=== PATIENT | male | born 1960 | race Caucasian/White ===

== ENCOUNTER 2017-12-26 21:34 | Inpatient (IN) | payer OTHER ==
[~2017-12-26] VITALS: Ht 170.2 cm; Wt 108.0 kg
[2017-12-26] MEDS ORDERED: SODIUM CHLORIDE 0.9% 1000ML 1,000 ML IV STA ×2 (22:14→23:16)
[2017-12-26] MEDS ORDERED: VANCOMYCIN 1GM/NS 250 ML 250 ML IV STA (22:14)
[2017-12-26] MEDS ORDERED: CEFEPIME HCL 2 GM VIAL IV STA (22:14)
[2017-12-26] MEDS ORDERED: ONDANSETRON HCL INJ 2 MG/ML VIAL IV STA (22:14)
[2017-12-26] MEDS ORDERED: VANCOMYCIN 1GM/NS 250 ML 250 ML ONE (22:24)
[2017-12-26] MEDS ORDERED: CEFEPIME HCL 2 GM VIAL ONE (22:25)
[2017-12-26] MEDS ORDERED: SODIUM CHLORIDE 0.9% 1000ML 2,000 ML ONE (22:25)
[2017-12-26 22:32] LABS: BASOPHILS # (AUTO) 0.1 (0.0-0.1); BASOPHILS % 0.2 % (0.0-1.0); HEMATOCRIT 41.4 % (38.2-49.6); HEMOGLOBIN 13.7 g/dL (14.0-18.0); LYMPHOCYTES # (AUTO) 0.9 (1.0-3.2); LYMPHOCYTES % 3.2 % (18.0-39.1); MEAN CORPUSCULAR HEMOGLOBIN 30.2 pg (28-32); MEAN CORPUSCULAR HGB CONC 33.1 g/dL (31-35); MEAN CORPUSCULAR VOLUME 91.2 fL (81-99); MONOCYTES # (AUTO) 2.6 (0.2-0.8); MONOCYTES % 9.1 % (4.4-11.3); NEUTROPHILS # (AUTO) 25.1 (2.1-6.9); NEUTROPHILS % 86.3 % (38.7-80.0); PLATELET COUNT 153 x10e3/uL (140-360); RED BLOOD COUNT 4.54 x10e6/uL (4.3-5.7); RED CELL DISTRIBUTION WIDTH 13.1 % (11.7-14.4)
[2017-12-26] MEDS ORDERED: ACETAMINOPHEN 1000 MG/100 ML IV STA (22:42)
[2017-12-26 22:45] LABS: INR 1.3; PROTHROMBIN TIME 15.2 seconds (11.9-14.5)
[2017-12-26 22:46] LABS: PARTIAL THROMBOPLASTIN TIME 30.7 seconds (23.8-35.5)
[2017-12-26 22:59] LABS: ALBUMIN 2.7 g/dL (3.5-5.0); ALBUMIN/GLOBULIN RATIO 0.6 (0.8-2.0); ANION GAP 16.6 mmol/L (8-16); CREATININE, SERUM 2.46 mg/dL (0.72-1.25); MAGNESIUM 1.5 MG/DL (1.3-2.1); POTASSIUM 3.6 mmol/L (3.5-5.1)
[2017-12-26 23:07] LABS: CREATINE KINASE MB 0.8 ng/mL (0.00-5.00)
[2017-12-26 23:10] LABS: KETONES,URINE TRACE (NEGATIVE); LEUKOCYTE ESTERASE ,URINE 2+ (NEGATIVE); NITRITE,URINE NEGATIVE (NEGATIVE); URINE UROBILINOGEN 8 mg/dL (0.2 - 1)
[2017-12-26 23:12] LABS: BILIRUBIN,URINE 1+ (NEGATIVE); CLARITY,URINE CLOUDY (CLEAR); COLOR,URINE AMBER (YELLOW); PROTEIN,URINE DIPSTICK 2+ (NEGATIVE)
[2017-12-26 23:17] LABS: BACTERIA,URINE MODERATE /HPF; EPITHELIAL CELLS,URINE FEW /LPF; RBC,URINE >50 /HPF (0-5); WBC,URINE (MAN) >50 /HPF (0-5)
[2017-12-26 23:36] LABS: ABG PCO2 34 mmHg (41-51); ABG PH 7.36 (7.31-7.41)
[2017-12-26 23:37] LABS: ABG HCO3 19 mmol/L (23-28); ABG PO2 53 mmHg (80-105)
[2017-12-27] VITALS (37 sets, daily range): BP systolic 106–168; BP diastolic 79–101
--- NOTE | 2017-12-27 00:07 | Diagnostic Imaging Report ---
History:Right hand weakness Comparison studies:None Technique: Axial images were obtained from the skull base to the vertex. Coronal and sagittal images reconstructed from the axial data. Intravenous contrast: None Findings: Scalp/skull: No abnormalities. Extra-axial spaces: No masses. No fluid collections. Brain sulci: Appropriate for age Ventricles: Normal in size and configuration. No hydrocephalus. Parenchyma: Subtle hypodensities in the supratentorial white matter are small vessel ischemic changes. No masses, hemorrhage, acute or chronic cortical vascular insults. Sellar/suprasellar region: No abnormalities. Craniocervical junction: Patent foramen magnum. No Chiari one malformation. Incidental findings: Atherosclerotic calcifications in the carotid siphons . Impression: No acute abnormalities. Minimal supratentorial white matter small vessel ischemic changes. Signed by: Dr. Franklyn Duque M.D. on 12/27/2017 12:03 AM
--- NOTE | 2017-12-27 00:46 | Diagnostic Imaging Report ---
EXAM: CT ABDOMEN/PELVIS WO DATE: 12/26/2017 10:14 PM INDICATION: Sepsis, obstructive uropathy COMPARISON: None TECHNIQUE: The abdomen and pelvis were scanned using a multidetector helical scanner. Coronal and sagittal reformations were obtained. Routine protocol performed. IV Contrast: None FINDINGS: Lack of IV contrast decreases sensitivity in evaluating abdominal and pelvic organs. LOWER THORAX: Mild right greater than left bibasilar groundglass, which could reflect atelectasis. Developing infection not entirely excluded in the right lower lobe. LIVER/BILIARY: Hepatic steatosis. No ductal dilatation. GALLBLADDER: Unremarkable SPLEEN: Unremarkable PANCREAS: Unremarkable ADRENALS: No nodules KIDNEYS: Moderate bilateral perinephric and left periureteral stranding. Nonobstructing 3 mm left upper pole calculus and 6 mm and 3 mm lower pole calculi. 5 the 6 mm mid left ureteral calculus above the pelvic brim with mild hydroureteronephrosis. Gas and high attenuation/complex fluid is seen within the left collecting system. Nonobstructing 3 mm right interpolar calculus. No hydronephrosis. GI TRACT: No evidence of obstruction. Sigmoid wall thickening which may be due to underdistention. Scattered diverticula. VESSELS: Mild atherosclerotic calcifications PERITONEUM/RETROPERITONEUM: No free air or fluid LYMPH NODES: No lymphadenopathy REPRODUCTIVE ORGANS/BLADDER: Bladder is decompressed with a Rios. SOFT TISSUES: Bilateral fat-containing inguinal hernias. BONES: Degenerative changes with L1-2 and lower thoracic posterior disc osteophyte impressing upon the ventral thecal sac. IMPRESSION: 1. 5-6 mm left mid ureteral calculus with mild upstream hydroureteronephrosis. 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 2. Multiple nonobstructing renal calculi. Discussed with Physician: ELKE GARZON MD at 12:40 AM on 12/27/2017 Signed by: Dr Maddison Lizama MD on 12/27/2017 12:42 AM
[2017-12-27] MEDS ORDERED: DEXTROSE 50% SYRINGE 50 ML IV PRN (01:15)
[2017-12-27] MEDS ORDERED: ONDANSETRON HCL INJ 2 MG/ML VIAL IV PRN (01:15)
[2017-12-27] MEDS ORDERED: MORPHINE SULFATE 2 MG/ML SYR IV PRN (01:15)
[2017-12-27] MEDS: CEFEPIME HCL 2 GM VIAL IV SCH ×2 (01:23→13:26)
[2017-12-27] MEDS: SODIUM CHLORIDE 0.9% 1000ML 1,000 ML IV SCH ×2 (01:35→12:31)
--- NOTE | 2017-12-27 01:35 | Diagnostic Imaging Report ---
CHEST SINGLE (PORTABLE), 12/27/2017 12:24 AM Technique: CHEST SINGLE (PORTABLE) Comparison: None available. Clinical history: \S\SEPSIS, LIKELY UTI/OBSTRUCTIVE UROPATHY \[id number] \S\99 Findings: See Impression. Partially imaged ACDF. Impression: 1. Normal cardiomediastinal silhouette for technique. 2. Mild perihilar/bibasilar opacities which may be due to edema. 3. No effusion or pneumothorax. Signed by: Dr Maddison Lizama MD on 12/27/2017 1:32 AM
--- OUTSIDE RECORDS SUMMARY | 2017-12-27 01:36 | XMS REPORT ---
Author [facility] Address Unknown Phone Unavailable Care Team Providers Care Street Openings Inspector Name Role Phone ELKE GARZON Unavailable Unavailable Problems This patient has no known problems. Allergies, Adverse Reactions, Alerts This patient has no known allergies or adverse reactions. Medications This patient has no known medications. Results Test Description Test Time Test Comments Text Results Atomic Results Result Comments CT BRAIN WO [place] [address] Patient Name: SUJATHA GRECO MR #: [id number] : 1960 Age/Sex: 57/M Req # : [id number] Adm Physician: Ordered by: ELKE GARZON MD Report #: [id number] Location: ER Room/Bed: Procedure: [id number] CT/CT BRAIN WO Exam Date: 12/26/17 Exam Time: 2335 REPORT STATUS: Signed History:Right hand weakness Comparison studies: None Technique: Axial images were obtained from the skull base to the vertex. Coronal and sagittal images reconstructed from the axial data. Intravenous contrast: None Findings: Scalp/skull: No abnormalities. Extra-axial spaces: No masses. No fluid collections. Brain sulci: Appropriate for age Ventricles: Normal in size and configuration. No hydrocephalus. Parenchyma: Subtle hypodensities in the supratentorial white matter are small vessel ischemic changes. No masses, hemorrhage, acute or chronic cortical vascular insults. Sellar/ suprasellar region: No abnormalities. Craniocervical junction: Patent foramen magnum. No Chiari one malformation. Incidental findings: Atherosclerotic calcifications in the carotid siphons . Impression: No acute abnormalities. Minimal supratentorial white matter small vessel ischemic changes. Signed by: Dr. Franklyn Duque M.D. on 12/27/2017 12: 03 AM Dictated By: FRANKLYN DUQUE MD, MD 0003 Transcribed By: SAVANA on 0003 COPY TO: ELKE GARZON MD CT ABDOMEN/PELVIS WO [place] [address] Patient Name: SUJATHA GRCEO MR #: [id number] : 1960 Age/Sex: 57/M Req #: [id number] Adm Physician: Ordered by: ELKE GARZON MD Report #: [id number] Location: ER Room/Bed: Procedure: [id number] CT/CT ABDOMEN/PELVIS WO Exam Date: 12/26/17 Exam Time: 5 REPORT STATUS: Signed EXAM: CT ABDOMEN/ PELVIS WO DATE: 12/26/2017 10:14 PM INDICATION: Sepsis, obstructive uropathy COMPARISON: None TECHNIQUE: The abdomen and pelvis were scanned using a multidetector helical scanner. Coronal and sagittal reformations were obtained. Routine protocol performed. IV Contrast: None FINDINGS: Lack of IV contrast decreases sensitivity in evaluating abdominal and pelvic organs. LOWER THORAX: Mild right greater than left bibasilar groundglass, which could reflect atelectasis. Developing infection not entirely excluded in the right lower lobe. LIVER/BILIARY: Hepatic steatosis. No ductal dilatation. GALLBLADDER: Unremarkable SPLEEN: Unremarkable PANCREAS: Unremarkable ADRENALS: No nodules KIDNEYS: Moderate bilateral perinephric and left periureteral stranding. Nonobstructing 3 mm left upper pole calculus and 6 mm and 3 mm lower pole calculi. 5 the 6 mm mid left ureteral calculus above the pelvic brim with mild hydroureteronephrosis. Gas and high attenuation/complex fluid is seen within the left collecting system. Nonobstructing 3 mm right interpolar calculus. No hydronephrosis. GI TRACT: No evidence of obstruction. Sigmoid wall thickening which may be due to underdistention. Scattered diverticula. VESSELS: Mild atherosclerotic calcifications PERITONEUM/RETROPERITONEUM: No free air or fluid LYMPH NODES: No lymphadenopathy REPRODUCTIVE ORGANS/BLADDER: Bladder is decompressed with a Rios. SOFT TISSUES: Bilateral fat- containing inguinal hernias. BONES: Degenerative changes with L1-2 and lower thoracic posterior disc osteophyte impressing upon the ventral thecal sac. IMPRESSION: 1. 5-6 mm left mid ureteral calculus with mild upstream hydroureteronephrosis. 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 2. Multiple nonobstructing renal calculi. Discussed with Physician: ELKE GARZON MD at 12:40 AM on 12/27/2017 Signed by: Dr Tamiko Lizama MD on 12/27/2017 12:42 AM Dictated By: TAMIKO LIZAMA MD Transcribed By: SAVANA on 12/27/1741 COPY TO: ELKE GARZON MD
[2017-12-27] MEDS ORDERED: FENTANYL CITRATE/PF 100MCG/2 ML INJ PRN (01:42)
[2017-12-27] MEDS ORDERED: MIDAZOLAM HCL 2 MG/2 ML VIAL PRN (01:42)
[2017-12-27] MEDS ORDERED: SODIUM CHLORIDE 0.9% 1000ML 2,000 ML PRN (01:43)
[2017-12-27] MEDS ORDERED: IOPAMIDOL 370 MG/ML 200 ML INFUS..BTL INJ PRN (01:43)
[2017-12-27] MEDS ORDERED: LIDOCAINE HCL 2% LOCAL 20 ML VIAL PRN (01:43)
[2017-12-27] MEDS: MORPHINE SULFATE 2 MG/ML SYR IV PRN ×2 (04:55→20:13)
[2017-12-27 05:21] LABS: BASOPHILS # (AUTO) 0.1 (0.0-0.1); BASOPHILS % 0.3 % (0.0-1.0); HEMATOCRIT 39.9 % (38.2-49.6); HEMOGLOBIN 12.9 g/dL (14.0-18.0); LYMPHOCYTES # (AUTO) 1.2 (1.0-3.2); LYMPHOCYTES % 5.2 % (18.0-39.1); MEAN CORPUSCULAR HEMOGLOBIN 29.9 pg (28-32); MEAN CORPUSCULAR HGB CONC 32.3 g/dL (31-35); MEAN CORPUSCULAR VOLUME 92.4 fL (81-99); MONOCYTES % 8.2 % (4.4-11.3); NEUTROPHILS # (AUTO) 20.2 (2.1-6.9); NEUTROPHILS % 85.6 % (38.7-80.0); PLATELET COUNT 131 x10e3/uL (140-360); RED BLOOD COUNT 4.32 x10e6/uL (4.3-5.7); RED CELL DISTRIBUTION WIDTH 13.1 % (11.7-14.4)
[2017-12-27 05:21] LABS: KETONES,URINE NEGATIVE (NEGATIVE); LEUKOCYTE ESTERASE ,URINE 2+ (NEGATIVE); NITRITE,URINE NEGATIVE (NEGATIVE); URINE UROBILINOGEN 0.2 mg/dL (0.2 - 1)
[2017-12-27 05:22] LABS: BILIRUBIN,URINE 1+ (NEGATIVE); CLARITY,URINE TURBID (CLEAR); COLOR,URINE BROWN (YELLOW); PROTEIN,URINE DIPSTICK 2+ (NEGATIVE)
[2017-12-27 05:27] LABS: BACTERIA,URINE MODERATE /HPF; EPITHELIAL CELLS,URINE RARE /LPF; RBC,URINE >50 /HPF (0-5); WBC,URINE (MAN) >50 /HPF (0-5)
[2017-12-27 05:44] LABS: ALBUMIN 2.3 g/dL (3.5-5.0); ALBUMIN/GLOBULIN RATIO 0.5 (0.8-2.0); ANION GAP 14.2 mmol/L (8-16); CALCIUM 7.9 mg/dL (8.4-10.2); CREATININE, SERUM 2.28 mg/dL (0.72-1.25); POTASSIUM 4.2 mmol/L (3.5-5.1)
[2017-12-27 06:52] LABS: CHOL/HDL RATIO 17.6 (3.9-4.7)
[2017-12-27 07:10] LABS: BAND NEUTROPHILS % (MANUAL) 5 %; LYMPHOCYTES % (MANUAL) 5 % (19-48); MONOCYTES % (MANUAL) 5 % (3.4-9.0); NEUTROPHILS % (MANUAL) 85 % (40-74)
[2017-12-27 07:11] LABS: PLATELET ESTIMATE SLIGHTLY DECREASED; PLATELET MORPHOLOGY COMMENT NORMAL; RBC MORPHOLOGY COMMENT NORMAL
--- NOTE | 2017-12-27 07:27 | History and Physical ---
PRIMARY CARE PHYSICIAN: Dr. Jackson CHIEF COMPLAINT: Bloody urine. HISTORY OF PRESENT ILLNESS: This is a 57-year-old man who developed bloody urine about a week ago, had difficulty with some urination. He had fever at home as high as 102, finally decided to come to the hospital due to persistent symptoms. Here, he was found to have acute kidney injury and left-sided ureterolithiasis with hydroureteronephrosis with emphysematous pyelitis. Patient was taken to the lab and left-sided nephrostomy tube was placed. Patient was also found to be septic, admitted to the ICU for further management. Currently has left flank pain. Denies any nausea, vomiting. Overnight, patient's oxygen saturations were falling and required BiPAP support. PAST MEDICAL HISTORY: Remote stroke with residual right-sided weakness; sleep apnea, using CPAP at home; he had a pulmonary embolus in 2012; diabetes mellitus type 2; nephrolithiasis. PAST SURGICAL HISTORY: Cervical fusion, appendectomy, tonsillectomy. ALLERGIES: PER ELECTRONIC MEDICAL RECORD. FAMILY/SOCIAL HISTORY: Patient is single. He drinks occasionally. Denies any cigarettes or illicits. MEDICATIONS: Per electronic medical record. REVIEW OF SYSTEMS: Denies any dizziness, chest pain. PHYSICAL EXAMINATION: VITAL SIGNS: Have been reviewed. Temperature as high as 101.1, pulse as high as 126, blood pressure 77/68. GENERAL APPEARANCE: Tired-appearing man resting in bed with BiPAP mask in place. HEENT: He has BiPAP mask in place. CARDIOVASCULAR: Normal S1 and S2. LUNGS: He has reduced breath sounds throughout. No wheezing. ABDOMEN: Soft, nondistended. He has tenderness on the left side, left flank. He has nephrostomy tube in place with some serosanguineous material draining. EXTREMITIES: No edema or calf tenderness. NEUROLOGICAL: He is alert and oriented x3. He moves all extremities. SKIN: Dry. PSYCHIATRIC: Normal affect. LABS: Reviewed. MEDICATIONS: Reviewed. ASSESSMENT AND PLAN: A 57-year-old man. 1. Severe sepsis with acute kidney injury. Will continue antibiotics. Follow up cultures. Patient is on intravenous cefepime. He is also on intravenous fluids. Will also obtain blood cultures. 2. Acute kidney injury. Secondary to ureterolithiasis. Will continue intravenous fluids and follow up. 3. Left ureterolithiasis with 5 to 6 mm left mid ureteral calculus with associated hydroureteronephrosis and emphysematous pyelitis/pyelonephritis. He is status post left-sided nephrostomy tube. 4. Multiple nonobstructive renal calculi. 5. Obstructive sleep apnea, now with respiratory distress. He is on bilevel positive airway pressure. We will follow closely. His arterial blood gases done in the emergency room showed 7.36/34/53. He is hypoxemic. Will continue bilevel positive airway pressure support at this time and reassess. 6. Hyponatremia. This is improving. Will continue to follow. 7. Diabetes mellitus type 2. Will obtain hemoglobin A1c and lipid panel. Will start patient on insulin Levemir 7 units daily. 8. Hyperbilirubinemia. Bilirubin 1.9. Seems to be improving, already 1.3 now. Will follow. 9. Transaminitis. Will screen patient with hepatitis panel as he is aged 57. 10. History of pulmonary embolism in 2012. Will treat patient only prophylactically at this time. 11. Prophylaxis. Will use Pepcid and Lovenox. 12. Disposition. Monitor closely. Obtain blood cultures. Consulted infectious disease. Critical care time more than 35 minutes. Job#: [id number]
[2017-12-27] MEDS: INSULIN REGULAR, HUMAN 100 UNIT/1 ML 3ML VIAL SQ SCH ×4 (07:30→19:54)
[2017-12-27 08:00] LABS: CREATINE KINASE MB 1.6 ng/mL (0.00-5.00)
[2017-12-27] MEDS: INSULIN DETEMIR 100 UNIT/ML PEN SQ SCH (09:00)
[2017-12-27] MEDS: FAMOTIDINE 20 MG/2 ML VIAL IV SCH ×2 (09:09→16:11)
--- NOTE | 2017-12-27 09:41 | Diagnostic Imaging Report ---
PROCEDURE: A single AP view of the chest. COMPARISON: Patients [facility], , CHEST SINGLE (PORTABLE), 12/27/2017, 1:09. INDICATIONS: SOB FINDINGS: Lines/tubes: Right IJ central line has been added. Lungs: Worsening pulmonary edema. Pleura: There is no pleural effusion or pneumothorax. Heart and mediastinum: The heart and the mediastinum are unremarkable. Bones: No acute bony abnormality. IMPRESSION: Worsening pulmonary edema. Jorge Roberts D.O. Dictated by: Jorge Roberts D.O. on 12/27/2017 at 9:41 Electronically approved by: Jorge Roberts D.O. on 12/27/2017 at 9:41
[2017-12-27] MEDS ORDERED: CEFEPIME HCL 2 GM VIAL ONE (13:29)
--- NOTE | 2017-12-27 16:05 | Consultation ---
DATE OF CONSULTATION: December 27, 2017 The patient is in ICU bed 192 of [facility]. REASON FOR CONSULTATION: To evaluate and assist in the treatment of patient with sepsis and genitourinary tract infection. Information is gathered from the current medical record. I interviewed the patient at the bedside. He is a 57-year-old male with history of diabetes mellitus, nephrolithiasis, obesity, sleep apnea. He has a history of pulmonary embolism. He suffers from sleep apnea and uses CPAP at home. There is a remote history of CVA with residual right-sided paresis. He has had surgery for fusion of his cervical spine, C4, 5 and 6. He has had appendectomy and tonsillectomy in the past. He was admitted to the hospital on December 27, 2017, with difficulty urinating. He started noticing blood in the urine a few days before presentation. He also had fevers at home with temperatures up to 102 degrees Fahrenheit, which prompted him to come to the hospital for evaluation. It is reported that he was found with acute kidney injury with a left-sided ureterolithiasis with hydroureteronephrosis with emphysematous pyelitis. He was taken to the OR. He has had a left nephrostomy placed. He was diagnosed with sepsis associated with his genitourinary tract infection. MEDICAL HISTORY: As reported above. There is no report of chronic kidney disease besides the nephrolithiasis. No report of liver disease or myocardial infarction. SOCIAL HISTORY: He drinks socially. He denies alcohol and other forms of recreational drug use. FAMILY HISTORY: Positive for hypertension and diabetes mellitus as well as obesity. ALLERGIES: HE HAS NO KNOWN MEDICATION ALLERGIES. MEDICATIONS: He is on treatment with cefepime. The rest of his medications are per the medication administration report. REVIEW OF SYSTEMS: The patient is on CPAP currently. He is alert. His sensorium is clear. He appears ill. Otherwise, in no acute distress. He has no headache or neck stiffness. No sore throat. No visual or auditory complaints. No chest pain. There is abdominal discomfort. He has had hematuria. No pruritus or rash. PHYSICAL EXAMINATION GENERAL: He is an adult male. He is awake, alert. He appears ill but nontoxic and is currently in no acute distress. VITALS: Maximum temperature recorded here is 101.1 degrees Fahrenheit. He is hemodynamically stable. HEENT: He has no gross pallor and no obvious icterus. No oropharyngeal lesions. NECK: Supple. CHEST: Symmetric. Lungs sound clear. HEART: Heart sounds are regular without significant murmur. ABDOMEN: Full, soft and nontender with normal bowel sounds. There is no acute erythema of the extremities. LABS: His white count on December 26, 2017, was 29.0. His white count currently is 23.6, hemoglobin 12.9, platelet count 131, down from 153. Differential on his white count is 85% neutrophils. His serum creatinine was 2.2 on December 27, 2017. It was 2.4 on December 26, 2017. Urine culture from December 26 is in progress. December 27 urine and blood cultures are in progress. CT scan of the abdomen and pelvis from December 26, 2017, reported 5 to 6 mm left mid ureteral calculus with mild upstream hydroureteronephrosis. There are findings of emphysematous pyelitis and pyelonephritis in the setting of an obstructing stone. There are multiple nonobstructing renal calculi. His chest x-ray shows normal cardiomediastinal silhouette, mild perihilar/bibasilar opacities which may be due to edema. No effusion or pneumothorax. IMPRESSION: This 57-year-old male presented with signs and symptoms consistent with sepsis associated with complicated genitourinary tract infection with pyelitis and pyelonephritis. There is nephrolithiasis. He has had a percutaneous nephrostomy placed on the left. I suggest we follow up on his cultures. Continue current antimicrobial therapy. Monitor temperature, CBC, renal function and monitor clinical response to treatment. Adjust medications according to renal function. He needs nephrology and urology followups. I have discussed the findings and treatment with the patient at the bedside. I have discussed the patient with Dr. Peres, whom I thank for the consult and opportunity to participate in the patient's care. GERSON SAENZ MD Job#: [id number]
[2017-12-27] MEDS: ENOXAPARIN SOD INJ 40 MG/0.4 ML SYR SC SCH (16:11)
[2017-12-27] MEDS ORDERED: FUROSEMIDE INJ 10 MG/ML 2 ML VIAL IV NR (18:30)
[2017-12-27 19:15] LABS: BASOPHILS % 0.2 % (0.0-1.0); EOSINOPHILS % 0.1 % (0.0-6.0); HEMATOCRIT 39.4 % (38.2-49.6); HEMOGLOBIN 13.2 g/dL (14.0-18.0); LYMPHOCYTES % 4.8 % (18.0-39.1); MEAN CORPUSCULAR HEMOGLOBIN 30.2 pg (28-32); MEAN CORPUSCULAR HGB CONC 33.5 g/dL (31-35); MEAN CORPUSCULAR VOLUME 90.2 fL (81-99); MONOCYTES # (AUTO) 1.9 (0.2-0.8); MONOCYTES % 9.2 % (4.4-11.3); NEUTROPHILS # (AUTO) 17.2 (2.1-6.9); NEUTROPHILS % 84.8 % (38.7-80.0); PLATELET COUNT 138 x10e3/uL (140-360); RED BLOOD COUNT 4.37 x10e6/uL (4.3-5.7); RED CELL DISTRIBUTION WIDTH 13.2 % (11.7-14.4)
[2017-12-27 19:43] LABS: CREATINE KINASE MB 1.9 ng/mL (0-5.0)
[2017-12-27 19:49] LABS: ANION GAP 15.8 mmol/L (8-16); CALCIUM 8.1 mg/dL (8.4-10.2); CREATININE, SERUM 2.08 mg/dL (0.72-1.25); POTASSIUM 3.8 mmol/L (3.5-5.1)
[2017-12-27] MEDS ORDERED: ACETAMINOPHEN 1000 MG/100 ML IV PRN (20:00)
--- NOTE | 2017-12-27 22:00 | Consultation ---
DATE OF CONSULTATION: PULMONARY CONSULTATION Patient of Dr. Peres, Dr. Jaguar Jackson, Dr. Colvin. HISTORY: A charming, but unfortunate 57-year-old gentleman with history of renal stones, scheduled for a procedure on the . However, he is admitted with fever to 102 and hematuria. He was found to have urinary sepsis, renal stones, emphysematous pyelonephritis, left hydronephrosis. He has a history of pulmonary emboli in the past, history of complications after cervical spine surgery, history of stroke with right hemiparesis, history of sleep apnea for many years, history of diabetes mellitus. He takes Tarceva, Crestor, and . He has had hernia surgery, appendectomy, surgical fusion, course complicated what he described as pulmonary emboli, also coughing blood in what he describes as a traumatic intubation. Does not smoke, rarely drinks, works at the [employer] in [place]. EXAM VITALS: Temperature on admission was 101, blood pressure 156/90, pulse 80. GENERAL: He is awake and alert, requesting a relief from his BiPAP. HEAD: Normocephalic. NECK: Normal. LUNGS: Rales right greater than left. HEART: Regular rhythm. ABDOMEN: Nontender. EXTREMITIES: Not edematous. IMPRESSION: Urinary sepsis, obstructive sleep apnea, hyperlipidemia. PLAN: Conscious diuresis. Antibiotics. BiPAP as needed with relief p.r.n. Hopefully, he will be able to eat in the morning. Control of his diabetes mellitus. Thank you for this kind referral. Job#: [id number] CQ
[2017-12-28] VITALS (24 sets, daily range): BP systolic 98–172; BP diastolic 61–101
[2017-12-28] MEDS: MORPHINE SULFATE 2 MG/ML SYR IV PRN ×3 (00:14→15:26)
[2017-12-28] MEDS ORDERED: CEFEPIME HCL 2 GM VIAL IV SCH (01:15)
[2017-12-28] MEDS: CEFEPIME HCL 1 GM VIAL IV SCH ×2 (02:08→15:25)
[2017-12-28] MEDS: SODIUM CHLORIDE 0.9% 1000ML 1,000 ML IV SCH (02:09)
[2017-12-28] MEDS ORDERED: DULAGLUTIDE PO (03:21)
[2017-12-28] MEDS ORDERED: [UNRECOGNIZED DRUG - OTHER] PO (03:24)
[2017-12-28] MEDS ORDERED: NEURONTIN300 MG (03:25)
[2017-12-28] MEDS ORDERED: CRESTOR10 MG PO (03:29)
[2017-12-28] MEDS ORDERED: PLAVIX75 MG PO (03:29)
[2017-12-28] MEDS ORDERED: ZOLOFT50 MG PO (03:30)
[2017-12-28 05:20] LABS: BASOPHILS # (AUTO) 0.1 (0.0-0.1); BASOPHILS % 0.3 % (0.0-1.0); EOSINOPHILS # (AUTO) 0.1 (0.0-0.4); EOSINOPHILS % 0.3 % (0.0-6.0); HEMOGLOBIN 12.9 g/dL (14.0-18.0); LYMPHOCYTES # (AUTO) 1.3 (1.0-3.2); LYMPHOCYTES % 6.7 % (18.0-39.1); MEAN CORPUSCULAR HEMOGLOBIN 29.9 pg (28-32); MEAN CORPUSCULAR HGB CONC 33.1 g/dL (31-35); MEAN CORPUSCULAR VOLUME 90.3 fL (81-99); MONOCYTES # (AUTO) 1.8 (0.2-0.8); MONOCYTES % 9.2 % (4.4-11.3); NEUTROPHILS # (AUTO) 15.8 (2.1-6.9); NEUTROPHILS % 82.7 % (38.7-80.0); PLATELET COUNT 149 x10e3/uL (140-360); RED BLOOD COUNT 4.32 x10e6/uL (4.3-5.7); RED CELL DISTRIBUTION WIDTH 13.2 % (11.7-14.4)
[2017-12-28 05:41] LABS: ALBUMIN 2.1 g/dL (3.5-5.0); ANION GAP 13.8 mmol/L (8-16); BILIRUBIN,DIRECT 0.6 mg/dL (0.0-5.0); CALCIUM 8.4 mg/dL (8.4-10.2); CREATININE, SERUM 2.17 mg/dL (0.72-1.25); POTASSIUM 3.8 mmol/L (3.5-5.1)
--- NOTE | 2017-12-28 06:19 | Diagnostic Imaging Report ---
CHEST SINGLE (PORTABLE), 12/28/2017 8:00 AM Technique: CHEST SINGLE (PORTABLE) Comparison: 12/27/2017 Clinical history: Pulmonary edema Findings: See Impression. Partially imaged ACDF. Impression: 1. Right IJ central venous catheter tip near the cavoatrial junction. 2. Normal cardiomediastinal silhouette for technique. 3. Stable to slight increase in asymmetric diffuse opacities, favor edema. 4. No effusion or pneumothorax. Signed by: Dr Maddison Lizama MD on 12/28/2017 6:16 AM
--- NOTE | 2017-12-28 07:18 | Diagnostic Imaging Report ---
Non-tunneled Central Venous Catheter Placement; left nephrostomy placement December 27, 2017 Pre-Procedure Diagnosis: Urosepsis; emphysematous pyelonephritis Post-procedure Diagnosis:Urosepsis; emphysematous pyelonephritis Clinical Research Director: Melissa Suazo Branch Or Department Chief Librarian: None Sedation: None. 1% lidocaine local anesthesia. Radiation Dose:161.9 cGycm2 (Dose Area Product) Fluoroscopy time:1 minutes Estimate blood loss: <5 mL Blood administered: None Complications: None Implants/Grafts: 16 cm 7-Chadian 3 lumen CVC; 8-Chadian left nephrostomy Specimen: 10 mL pus-laden urine from left collecting system. Procedure: Informed consent was obtained and the patient positioned supine in the fluoroscopy suite. A timeout was performed, followed by preliminary ultrasound of the right internal jugular vein (see findings below). The right neck was prepped and draped in standard fashion. Using real-time ultrasound guidance a 18 gauge vascular needle was used to access the right internal jugular vein. An image was stored in the electronic medical record. A wire was advanced across the right atrium under fluoroscopy and the needle exchanged for a non-tunneled central venous catheter using standard Salinger technique. The catheter was positioned at the low SVC/superior atrial-caval junction under fluoroscopy. At the end of the procedure the catheter was flushed, secured to the skin and a sterile dressing applied. The patient tolerated the procedure well and without immediate complication. Attention was turned to the left kidney. The patient was repositioned prone and the left back prepped and draped in standard sterile fashion. Pulmonary ultrasound of the left kidney was performed (see findings below). Using real-time ultrasound guidance a 21-gauge Chiba needle was advanced into a minimally dilated left collecting system. An image was stored in the electronic medical record. Positioning was confirmed with limited nephrostogram. The needle was exchanged for an 8-Chadian nephrostomy using standard technique. 10 mL pus-laden urine was collected for culture. The catheter was secured to the skin and a sterile dressing applied. Findings: Patent right internal jugular vein as demonstrated by normal ultrasound compressibility. Left renal ultrasound: Minimally dilated left urinary collecting system with multifocal nephrolithiasis. 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 Nephrostogram: Mild left collecting system dilation with distal obstruction consistent with known stone. Impression: 1. Successful placement of a non-tunneled right internal jugular central venous catheter using ultrasound and fluoroscopic guidance. 2. Successful placement of an 8-Chadian left nephrostomy for emphysematous pyelonephritis. Recommendations: 1. Follow-up cultures. 2. Left nephrostomy exchange in 3 months if catheter persists. This report was generated with voice-recognition technology. Errors in oil burner can occur. Please interpret accordingly and contact a radiologist if there are any questions regarding the report. Signed by: Dr. Barney Suazo M.D. on 12/28/2017 7:15 AM
--- NOTE | 2017-12-28 07:18 | Diagnostic Imaging Report ---
Non-tunneled Central Venous Catheter Placement; left nephrostomy placement December 27, 2017 Pre-Procedure Diagnosis: Urosepsis; emphysematous pyelonephritis Post-procedure Diagnosis:Urosepsis; emphysematous pyelonephritis Data Migration Lead: Melissa Suazo Logistics Supply Officer: None Sedation: None. 1% lidocaine local anesthesia. Radiation Dose:161.9 cGycm2 (Dose Area Product) Fluoroscopy time:1 minutes Estimate blood loss: <5 mL Blood administered: None Complications: None Implants/Grafts: 16 cm 7-Russian 3 lumen CVC; 8-Russian left nephrostomy Specimen: 10 mL pus-laden urine from left collecting system. Procedure: Informed consent was obtained and the patient positioned supine in the fluoroscopy suite. A timeout was performed, followed by preliminary ultrasound of the right internal jugular vein (see findings below). The right neck was prepped and draped in standard fashion. Using real-time ultrasound guidance a 18 gauge vascular needle was used to access the right internal jugular vein. An image was stored in the electronic medical record. A wire was advanced across the right atrium under fluoroscopy and the needle exchanged for a non-tunneled central venous catheter using standard Salinger technique. The catheter was positioned at the low SVC/superior atrial-caval junction under fluoroscopy. At the end of the procedure the catheter was flushed, secured to the skin and a sterile dressing applied. The patient tolerated the procedure well and without immediate complication. Attention was turned to the left kidney. The patient was repositioned prone and the left back prepped and draped in standard sterile fashion. Pulmonary ultrasound of the left kidney was performed (see findings below). Using real-time ultrasound guidance a 21-gauge Chiba needle was advanced into a minimally dilated left collecting system. An image was stored in the electronic medical record. Positioning was confirmed with limited nephrostogram. The needle was exchanged for an 8-Russian nephrostomy using standard technique. 10 mL pus-laden urine was collected for culture. The catheter was secured to the skin and a sterile dressing applied. Findings: Patent right internal jugular vein as demonstrated by normal ultrasound compressibility. Left renal ultrasound: Minimally dilated left urinary collecting system with multifocal nephrolithiasis. 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 Nephrostogram: Mild left collecting system dilation with distal obstruction consistent with known stone. Impression: 1. Successful placement of a non-tunneled right internal jugular central venous catheter using ultrasound and fluoroscopic guidance. 2. Successful placement of an 8-Russian left nephrostomy for emphysematous pyelonephritis. Recommendations: 1. Follow-up cultures. 2. Left nephrostomy exchange in 3 months if catheter persists. This report was generated with voice-recognition technology. Errors in stadium attendant can occur. Please interpret accordingly and contact a radiologist if there are any questions regarding the report. Signed by: Dr. Barney Suazo M.D. on 12/28/2017 7:15 AM
--- NOTE | 2017-12-28 07:18 | Diagnostic Imaging Report ---
Non-tunneled Central Venous Catheter Placement; left nephrostomy placement December 27, 2017 Pre-Procedure Diagnosis: Urosepsis; emphysematous pyelonephritis Post-procedure Diagnosis:Urosepsis; emphysematous pyelonephritis Hospital Chief Executive Officer: Melissa Suazo Leadership Program Associate: None Sedation: None. 1% lidocaine local anesthesia. Radiation Dose:161.9 cGycm2 (Dose Area Product) Fluoroscopy time:1 minutes Estimate blood loss: <5 mL Blood administered: None Complications: None Implants/Grafts: 16 cm 7-Namibian 3 lumen CVC; 8-Namibian left nephrostomy Specimen: 10 mL pus-laden urine from left collecting system. Procedure: Informed consent was obtained and the patient positioned supine in the fluoroscopy suite. A timeout was performed, followed by preliminary ultrasound of the right internal jugular vein (see findings below). The right neck was prepped and draped in standard fashion. Using real-time ultrasound guidance a 18 gauge vascular needle was used to access the right internal jugular vein. An image was stored in the electronic medical record. A wire was advanced across the right atrium under fluoroscopy and the needle exchanged for a non-tunneled central venous catheter using standard Salinger technique. The catheter was positioned at the low SVC/superior atrial-caval junction under fluoroscopy. At the end of the procedure the catheter was flushed, secured to the skin and a sterile dressing applied. The patient tolerated the procedure well and without immediate complication. Attention was turned to the left kidney. The patient was repositioned prone and the left back prepped and draped in standard sterile fashion. Pulmonary ultrasound of the left kidney was performed (see findings below). Using real-time ultrasound guidance a 21-gauge Chiba needle was advanced into a minimally dilated left collecting system. An image was stored in the electronic medical record. Positioning was confirmed with limited nephrostogram. The needle was exchanged for an 8-Namibian nephrostomy using standard technique. 10 mL pus-laden urine was collected for culture. The catheter was secured to the skin and a sterile dressing applied. Findings: Patent right internal jugular vein as demonstrated by normal ultrasound compressibility. Left renal ultrasound: Minimally dilated left urinary collecting system with multifocal nephrolithiasis. 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 Nephrostogram: Mild left collecting system dilation with distal obstruction consistent with known stone. Impression: 1. Successful placement of a non-tunneled right internal jugular central venous catheter using ultrasound and fluoroscopic guidance. 2. Successful placement of an 8-Namibian left nephrostomy for emphysematous pyelonephritis. Recommendations: 1. Follow-up cultures. 2. Left nephrostomy exchange in 3 months if catheter persists. This report was generated with voice-recognition technology. Errors in exercise science internship can occur. Please interpret accordingly and contact a radiologist if there are any questions regarding the report. Signed by: Dr. Barney Suazo M.D. on 12/28/2017 7:15 AM
--- NOTE | 2017-12-28 07:18 | Diagnostic Imaging Report ---
Non-tunneled Central Venous Catheter Placement; left nephrostomy placement December 27, 2017 Pre-Procedure Diagnosis: Urosepsis; emphysematous pyelonephritis Post-procedure Diagnosis:Urosepsis; emphysematous pyelonephritis Sewing Machines Salesperson: Melissa Suazo Hand Roller Engraver: None Sedation: None. 1% lidocaine local anesthesia. Radiation Dose:161.9 cGycm2 (Dose Area Product) Fluoroscopy time:1 minutes Estimate blood loss: <5 mL Blood administered: None Complications: None Implants/Grafts: 16 cm 7-Malaysian 3 lumen CVC; 8-Malaysian left nephrostomy Specimen: 10 mL pus-laden urine from left collecting system. Procedure: Informed consent was obtained and the patient positioned supine in the fluoroscopy suite. A timeout was performed, followed by preliminary ultrasound of the right internal jugular vein (see findings below). The right neck was prepped and draped in standard fashion. Using real-time ultrasound guidance a 18 gauge vascular needle was used to access the right internal jugular vein. An image was stored in the electronic medical record. A wire was advanced across the right atrium under fluoroscopy and the needle exchanged for a non-tunneled central venous catheter using standard Salinger technique. The catheter was positioned at the low SVC/superior atrial-caval junction under fluoroscopy. At the end of the procedure the catheter was flushed, secured to the skin and a sterile dressing applied. The patient tolerated the procedure well and without immediate complication. Attention was turned to the left kidney. The patient was repositioned prone and the left back prepped and draped in standard sterile fashion. Pulmonary ultrasound of the left kidney was performed (see findings below). Using real-time ultrasound guidance a 21-gauge Chiba needle was advanced into a minimally dilated left collecting system. An image was stored in the electronic medical record. Positioning was confirmed with limited nephrostogram. The needle was exchanged for an 8-Malaysian nephrostomy using standard technique. 10 mL pus-laden urine was collected for culture. The catheter was secured to the skin and a sterile dressing applied. Findings: Patent right internal jugular vein as demonstrated by normal ultrasound compressibility. Left renal ultrasound: Minimally dilated left urinary collecting system with multifocal nephrolithiasis. 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 Nephrostogram: Mild left collecting system dilation with distal obstruction consistent with known stone. Impression: 1. Successful placement of a non-tunneled right internal jugular central venous catheter using ultrasound and fluoroscopic guidance. 2. Successful placement of an 8-Malaysian left nephrostomy for emphysematous pyelonephritis. Recommendations: 1. Follow-up cultures. 2. Left nephrostomy exchange in 3 months if catheter persists. This report was generated with voice-recognition technology. Errors in pole lift operator can occur. Please interpret accordingly and contact a radiologist if there are any questions regarding the report. Signed by: Dr. Barney Suazo M.D. on 12/28/2017 7:15 AM
--- NOTE | 2017-12-28 07:18 | Diagnostic Imaging Report ---
Non-tunneled Central Venous Catheter Placement; left nephrostomy placement December 27, 2017 Pre-Procedure Diagnosis: Urosepsis; emphysematous pyelonephritis Post-procedure Diagnosis:Urosepsis; emphysematous pyelonephritis Technical Account Representative: Melissa Suazo Certified Genetic Counselor: None Sedation: None. 1% lidocaine local anesthesia. Radiation Dose:161.9 cGycm2 (Dose Area Product) Fluoroscopy time:1 minutes Estimate blood loss: <5 mL Blood administered: None Complications: None Implants/Grafts: 16 cm 7-C[place] Verdean 3 lumen CVC; 8-[place] left nephrostomy Specimen: 10 mL pus-laden urine from left collecting system. Procedure: Informed consent was obtained and the patient positioned supine in the fluoroscopy suite. A timeout was performed, followed by preliminary ultrasound of the right internal jugular vein (see findings below). The right neck was prepped and draped in standard fashion. Using real-time ultrasound guidance a 18 gauge vascular needle was used to access the right internal jugular vein. An image was stored in the electronic medical record. A wire was advanced across the right atrium under fluoroscopy and the needle exchanged for a non-tunneled central venous catheter using standard Salinger technique. The catheter was positioned at the low SVC/superior atrial-caval junction under fluoroscopy. At the end of the procedure the catheter was flushed, secured to the skin and a sterile dressing applied. The patient tolerated the procedure well and without immediate complication. Attention was turned to the left kidney. The patient was repositioned prone and the left back prepped and draped in standard sterile fashion. Pulmonary ultrasound of the left kidney was performed (see findings below). Using real-time ultrasound guidance a 21-gauge Chiba needle was advanced into a minimally dilated left collecting system. An image was stored in the electronic medical record. Positioning was confirmed with limited nephrostogram. The needle was exchanged for an 8-[place] Verdean nephrostomy using standard technique. 10 mL pus-laden urine was collected for culture. The catheter was secured to the skin and a sterile dressing applied. Findings: Patent right internal jugular vein as demonstrated by normal ultrasound compressibility. Left renal ultrasound: Minimally dilated left urinary collecting system with multifocal nephrolithiasis. 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 Nephrostogram: Mild left collecting system dilation with distal obstruction consistent with known stone. Impression: 1. Successful placement of a non-tunneled right internal jugular central venous catheter using ultrasound and fluoroscopic guidance. 2. Successful placement of an 8-[place] Verdean left nephrostomy for emphysematous pyelonephritis. Recommendations: 1. Follow-up cultures. 2. Left nephrostomy exchange in 3 months if catheter persists. This report was generated with voice-recognition technology. Errors in inspector of dredging can occur. Please interpret accordingly and contact a radiologist if there are any questions regarding the report. Signed by: Dr. Barney Suazo M.D. on 12/28/2017 7:15 AM
[2017-12-28] MEDS: INSULIN REGULAR, HUMAN 100 UNIT/1 ML 3ML VIAL SQ SCH ×4 (08:22→21:30)
[2017-12-28] MEDS: INSULIN DETEMIR 100 UNIT/ML PEN SQ SCH (08:23)
[2017-12-28] MEDS: LABETALOL HCL 100 MG TAB PO SCH ×2 (08:24→21:30)
[2017-12-28] MEDS: FAMOTIDINE 20 MG/2 ML VIAL IV SCH ×2 (08:24→16:42)
--- NOTE | 2017-12-28 09:40 | Progress Note ---
DATE: December 28, 2017 TIME: 7 a.m. OVERNIGHT: Remains on BiPAP. REVIEW OF SYSTEMS: Denies any chest pain. PHYSICAL EXAMINATION VITAL SIGNS: Reviewed. GENERAL: A tired-appearing man resting in bed. HEENT: Anicteric. Pupils respond to light. No oral lesions. He has BiPAP mask in place. CARDIOVASCULAR: Normal S1 and S2. LUNGS: Reduced breath sounds throughout. ABDOMEN: Soft, nontender and nondistended. He has left-sided nephrostomy tube in place. EXTREMITIES: No edema. SKIN: Dry. PSYCHIATRIC: Flat affect. LABS: Reviewed. MEDICATIONS: Reviewed. ASSESSMENT: A 57-year-old man with: 1. Severe sepsis with acute kidney injury. 2. Left ureterolithiasis: Status post nephrostomy tube placement. 3. Multiple nonobstructive renal calculi. 4. Obstructive sleep apnea. 5. Acute respiratory distress. 6. Hyponatremia. 7. Diabetes mellitus, type 2. 8. Hyperbilirubinemia. 9. Transaminitis. 10. History of pulmonary embolism in 2012. 11. Hypertriglyceridemia. PLAN 1. Control blood pressure with and labetalol. Also, heart rate is elevated. Will follow. 2. Continue insulin regimen. 3. Continue IV cefepime. 4. Follow up cultures. 5. Continue BiPAP support. 6. The patient has good output per left-sided nephrostomy tube. 7. All cultures remain negative. 8. Hemoglobin A1c is 7.8, LDL is 69 and triglycerides 322. 9. Hypertriglyceridemia. Will treat with fenofibrate. 10. Hyperbilirubinemia has resolved. 11. LFTs are improving. 12. Follow up hepatitis panel. 13. X-ray today has been reviewed. 14. Critical care time more than 35 minutes. Job#: [id number] LYNSEY
--- NOTE | 2017-12-28 11:01 | Diagnostic Imaging Report ---
Non-tunneled Central Venous Catheter Placement; left nephrostomy placement December 27, 2017 Pre-Procedure Diagnosis: Urosepsis; emphysematous pyelonephritis Post-procedure Diagnosis:Urosepsis; emphysematous pyelonephritis Phys Asst: Melissa Suazo Van Owner Operator: None Sedation: None. 1% lidocaine local anesthesia. Radiation Dose:161.9 cGycm2 (Dose Area Product) Fluoroscopy time:1 minutes Estimate blood loss: <5 mL Blood administered: None Complications: None Implants/Grafts: 16 cm 7-Andorran 3 lumen CVC; 8-Andorran left nephrostomy Specimen: 10 mL pus-laden urine from left collecting system. Procedure: Informed consent was obtained and the patient positioned supine in the fluoroscopy suite. A timeout was performed, followed by preliminary ultrasound of the right internal jugular vein (see findings below). The right neck was prepped and draped in standard fashion. Using real-time ultrasound guidance a 18 gauge vascular needle was used to access the right internal jugular vein. An image was stored in the electronic medical record. A wire was advanced across the right atrium under fluoroscopy and the needle exchanged for a non-tunneled central venous catheter using standard Salinger technique. The catheter was positioned at the low SVC/superior atrial-caval junction under fluoroscopy. At the end of the procedure the catheter was flushed, secured to the skin and a sterile dressing applied. The patient tolerated the procedure well and without immediate complication. Attention was turned to the left kidney. The patient was repositioned prone and the left back prepped and draped in standard sterile fashion. Pulmonary ultrasound of the left kidney was performed (see findings below). Using real-time ultrasound guidance a 21-gauge Chiba needle was advanced into a minimally dilated left collecting system. An image was stored in the electronic medical record. Positioning was confirmed with limited nephrostogram. The needle was exchanged for an 8-Andorran nephrostomy using standard technique. 10 mL pus-laden urine was collected for culture. The catheter was secured to the skin and a sterile dressing applied. Findings: Patent right internal jugular vein as demonstrated by normal ultrasound compressibility. Left renal ultrasound: Minimally dilated left urinary collecting system with multifocal nephrolithiasis. 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 Nephrostogram: Mild left collecting system dilation with distal obstruction consistent with known stone. Impression: 1. Successful placement of a non-tunneled right internal jugular central venous catheter using ultrasound and fluoroscopic guidance. 2. Successful placement of an 8-Andorran left nephrostomy for emphysematous pyelonephritis. Recommendations: 1. Follow-up cultures. 2. Left nephrostomy exchange in 3 months if catheter persists. This report was generated with voice-recognition technology. Errors in foreign agent can occur. Please interpret accordingly and contact a radiologist if there are any questions regarding the report. Signed by: Dr. Barney Suazo M.D. on 12/28/2017 7:15 AM
--- NOTE | 2017-12-28 13:53 | Progress Note ---
DATE: December 28, 2017 INFECTIOUS DISEASE PROGRESS NOTE The patient is alert and responsive. He feels much better. He is not coughing much now. No dyspnea at rest. No vomiting, no diarrhea, no other systemic complaints reports. In the past 24 hours, he had temperatures up to 100.5 degrees Fahrenheit. His most recent temperature 96.2. He is stable hemodynamically. He has no pallor. There is no icterus, no oropharyngeal lesions. His neck is supple. The chest is symmetric. The lungs are clear. Heart sounds are regular. There is no new murmur. The abdomen is soft. Bowel sounds are present. His left percutaneous nephrostomy tube is in place. No acute erythema of his extremities. His white count is 19.1. His creatinine 2.1. His urine cultures from December 26 and growing gram-negative rods. Blood cultures are negative. IMPRESSION: He has a complicated urinary tract infection with gram-negative urinary tract infection, pyelitis and pyelonephritis with obstructive uropathy. There is nephrolithiasis. He has had a left percutaneous urostomy tube placed. His white count is slowly trending down. Temperatures also seem to be slowly trending down. I suggest continue current antimicrobial therapy. Monitor temperature, CBC, renal function. Continue to monitor clinical response to treatment. Job#: [id number] GARRISON
[2017-12-28] MEDS: ENOXAPARIN SOD INJ 40 MG/0.4 ML SYR SC SCH (16:42)
[2017-12-29] VITALS (25 sets, daily range): BP systolic 121–173; BP diastolic 47–93
[2017-12-29] MEDS: CEFEPIME HCL 1 GM VIAL IV SCH (02:24)
[2017-12-29] MEDS: SODIUM CHLORIDE 0.9% 1000ML 1,000 ML IV SCH (02:25)
[2017-12-29] MEDS: INSULIN REGULAR, HUMAN 100 UNIT/1 ML 3ML VIAL SQ SCH ×3 (07:36→16:48)
[2017-12-29] MEDS: FAMOTIDINE 20 MG/2 ML VIAL IV SCH (09:08)
[2017-12-29] MEDS: INSULIN DETEMIR 100 UNIT/ML PEN SQ SCH (09:08)
[2017-12-29] MEDS: LABETALOL HCL 100 MG TAB PO SCH ×2 (09:08→20:13)
[2017-12-29] MEDS: CEFTRIAXONE SOD 1 GM VIAL IV SCH (13:27)
--- NOTE | 2017-12-29 14:19 | Progress Note ---
DATE: December 29, 2017 The patient is alert and responsive. He is seen in no acute distress. He is not coughing much. No dyspnea at rest. No vomiting, no diarrhea, no other systemic complaints reported. He is tolerating the antibiotics. PHYSICAL EXAMINATION VITAL SIGNS: Maximum temperature in the past 24 hours up to 99.1 degrees Fahrenheit. GENERAL: He is hemodynamically stable. HEENT: He has no pallor, no icterus, and no oropharyngeal lesions. NECK: Supple. CHEST: Symmetric. LUNGS: Clear. HEART: Sounds are regular. There is no new murmur. ABDOMEN: Soft. Bowel sounds are present. The left nephrostomy percutaneous drainage is in place. EXTREMITIES: No acute erythema of his extremities. LABS: His white count on December 28, 2017 was 19.1. His creatinine was 2.1. His urine cultures are growing E. coli. Blood cultures are negative. IMPRESSION: He is on treatment for sepsis associated with a complicated genitourinary tract infection with pyelonephritis and hydronephrosis. Urine cultures are growing E. coli. The patient is afebrile and stable. I suggest continue current antibiotic treatment. Change his antibiotic treatment to ceftriaxone once a day. Monitor temperature, CBC, and renal function. Continue to monitor clinical response to treatment. Job#: [id number] PACO
--- NOTE | 2017-12-29 14:19 | Progress Note ---
DATE: December 29, 2017 MEDICINE PROGRESS NOTE TIME OF SERVICE: 11 a.m. SUBJECTIVE: Overnight, no events. Feeling a little better. REVIEW OF SYSTEMS: Denies any dizziness, chest pain. VITAL SIGNS: Reviewed. PHYSICAL EXAMINATION GENERAL APPEARANCE: A tired-appearing man resting in bed. HEENT: Anicteric. CARDIOVASCULAR: Normal S1/S2. LUNGS: Moderate breath sounds. No wheezing. ABDOMEN: Soft, nontender, nondistended. EXTREMITIES: No edema or calf tenderness. NEUROLOGICALLY: He is alert and oriented x3. He moves all extremities. SKIN: Dry. PSYCHIATRIC: Flat affect. LABS: Reviewed. MEDICATIONS: Reviewed. ASSESSMENT: This is a 57-year-old man. 1. Severe sepsis with acute kidney injury. 2. Left ureterolithiasis status post nephrostomy tube placement. 3. Multiple nonobstructive renal calculi. 4. Obstructive sleep apnea. 5. Acute respiratory distress. 6. Hyponatremia. 7. Diabetes mellitus type 2. 8. Hyperbilirubinemia. 9. Transaminitis. 10. History of pulmonary embolism in 2012. 11. Hypertriglyceridemia. PLAN 1. Patient doing better. He is now on a nasal cannula. He will use BiPAP as needed. 2. Continue IV antibiotics per Infectious Disease. 3. Hemoglobin A1c is 7.8, LDL 69, triglyceride 322. 4. Hypertriglyceridemia. Continue fenofibrate. 5. Leukocytosis, persistent. I will obtain labs tomorrow morning. 6. Control glucose. Titrate medications. 7. Renal function remains the same. 8. He has E. coli urinary tract infection which is quite sensitive. He is currently on IV ceftriaxone. 9. He can be transitioned out of the ICU once his oxygen needs are less. Currently he is on 10 liters of nasal cannula. Job#: [id number] EV
[2017-12-29] MEDS: INSULIN LISPRO 100 UNIT/1 ML 3ML VIAL SQ SCH ×3 (16:47→21:00)
[2017-12-29] MEDS: ENOXAPARIN SOD INJ 40 MG/0.4 ML SYR SC SCH (16:52)
[2017-12-29] MEDS: FAMOTIDINE 20 MG TAB PO SCH (16:52)
[2017-12-29] MEDS ORDERED: ACETAMINOPHEN 325 MG TAB PO PRN (19:30)
[2017-12-30] VITALS (13 sets, daily range): BP systolic 129–180; BP diastolic 64–95
[2017-12-30 05:44] LABS: BASOPHILS # (AUTO) 0.1 (0.0-0.1); BASOPHILS % 0.4 % (0.0-1.0); EOSINOPHILS # (AUTO) 0.2 (0.0-0.4); EOSINOPHILS % 1.5 % (0.0-6.0); HEMATOCRIT 37.5 % (38.2-49.6); HEMOGLOBIN 12.1 g/dL (14.0-18.0); LYMPHOCYTES # (AUTO) 2.3 (1.0-3.2); LYMPHOCYTES % 15.7 % (18.0-39.1); MEAN CORPUSCULAR HEMOGLOBIN 29.6 pg (28-32); MEAN CORPUSCULAR HGB CONC 32.3 g/dL (31-35); MEAN CORPUSCULAR VOLUME 91.7 fL (81-99); MONOCYTES # (AUTO) 1.6 (0.2-0.8); MONOCYTES % 10.9 % (4.4-11.3); NEUTROPHILS # (AUTO) 10.2 (2.1-6.9); NEUTROPHILS % 70.4 % (38.7-80.0); PLATELET COUNT 240 x10e3/uL (140-360); RED BLOOD COUNT 4.09 x10e6/uL (4.3-5.7); RED CELL DISTRIBUTION WIDTH 13.6 % (11.7-14.4)
[2017-12-30 06:03] LABS: ANION GAP 11.5 mmol/L (8-16); CALCIUM 8.7 mg/dL (8.4-10.2); CREATININE, SERUM 1.41 mg/dL (0.72-1.25); POTASSIUM 3.5 mmol/L (3.5-5.1)
--- NOTE | 2017-12-30 06:26 | Diagnostic Imaging Report ---
CHEST SINGLE (PORTABLE), 12/30/2017 7:00 AM Technique: CHEST SINGLE (PORTABLE) Comparison: 12/28/2017 Clinical history: Sepsis Findings: See Impression. Partially imaged ACDF. Impression: 1. Stable right IJ central venous catheter tip at the cavoatrial junction. 2. Normal cardiomediastinal silhouette for technique. 3. Increasing focal right midlung opacity which could reflect developing infection, with underlying edema. 4. No effusion or pneumothorax. Signed by: Dr Maddison Lizama MD on 12/30/2017 6:22 AM
[2017-12-30] MEDS: INSULIN LISPRO 100 UNIT/1 ML 3ML VIAL SQ SCH ×6 (07:37→16:30)
[2017-12-30] MEDS: INSULIN DETEMIR 100 UNIT/ML PEN SQ SCH (08:16)
[2017-12-30] MEDS: FAMOTIDINE 20 MG TAB PO SCH ×2 (08:16→16:40)
[2017-12-30] MEDS: LABETALOL HCL 100 MG TAB PO SCH ×2 (08:16→21:00)
[2017-12-30] MEDS: NIFEDIPINE CR 30 MG TAB PO SCH ×2 (12:05→20:42)
[2017-12-30] MEDS: CEFTRIAXONE SOD 1 GM VIAL IV SCH (12:30)
[2017-12-30] MEDS ORDERED: VANCOMYCIN HCL 1 GM in SODIUM CHLORIDE 0.9% 250ML 250 ML IV SCH (12:45)
[2017-12-30 12:49] LABS: BAND NEUTROPHILS % (MANUAL) 5 %; EOSINOPHILS % (MANUAL) 2 % (0-7); LYMPHOCYTES % (MANUAL) 13 % (19-48); MONOCYTES % (MANUAL) 9 % (3.4-9.0); NEUTROPHILS % (MANUAL) 71 % (40-74); PLATELET ESTIMATE ADEQUATE; PLATELET MORPHOLOGY COMMENT NORMAL; RBC MORPHOLOGY COMMENT NORMAL
--- NOTE | 2017-12-30 13:11 | Progress Note ---
DATE: December 30, 2017 MEDICINE PROGRESS NOTE TIME OF SERVICE: 10 a.m. SUBJECTIVE: Overnight, no events. REVIEW OF SYSTEMS: Denies any chest pain. VITAL SIGNS: Reviewed. His blood pressure is elevated. PHYSICAL EXAMINATION GENERAL APPEARANCE: A tired-appearing man resting in bed. HEENT: Anicteric. He has CPAP in place. CARDIOVASCULAR: Normal S1/S2. LUNGS: Moderate breath sounds, no wheezing. ABDOMEN: Soft, nontender. EXTREMITIES: No edema. BACK: He has a left-sided nephrostomy tube in place. SKIN: Dry. PSYCHIATRIC: Flat affect. LABS: Reviewed. MEDICATIONS: Reviewed. ASSESSMENT: A 57-year-old man. 1. Severe sepsis with acute kidney injury. 2. Left ureterolithiasis, status post nephrostomy tube. 3. Multiple nonobstructive renal calculi. 4. Obstructive sleep apnea. 5. Acute respiratory distress. 6. Hyponatremia. 7. Diabetes mellitus type 2. 8. Hyperlipidemia. 9. Transaminitis. 10. History of pulmonary embolism in 2012. 11. Hypertriglyceridemia. 12. Escherichia coli urinary tract infection. PLAN 1. Continue his CPAP at nighttime. 2. Continue oxygen support. 3. Hemoglobin A1c is 7.8, LDL 69, triglyceride 322. 4. Continue treatment of hypertriglyceridemia with fenofibrate. 5. Start calcium channel abraham for better blood pressure control, continue beta abraham. 6. Continue with treatment for E. coli urinary tract infection. 7. Leukocytosis continues to improve. 8. Acute kidney injury continues to improve. 9. Glucose uncontrolled. Will add pre-meal insulins. 10. Prophylaxis. Continue Lovenox and Pepcid. 11. Disposition. Physical therapy consultation. Transfer to the floor. Job#: [id number] EV
[2017-12-30] MEDS: VANCOMYCIN 1GM/NS 250 ML 250 ML IV SCH (13:22)
[2017-12-30] MEDS ORDERED: SODIUM CHLORIDE 0.9% 250ML 250 ML ONE (13:25)
--- NOTE | 2017-12-30 13:51 | Progress Note ---
DATE: December 30, 2017 The patient is fairly stable. He is in no distress. He is not coughing much. No dyspnea at rest. No vomiting. No diarrhea. No pain complaints. PHYSICAL EXAMINATION VITALS: Overnight, he had temperature up to 101.4 degrees Fahrenheit. His most recent temperature is 97.3. He is hemodynamically stable. GENERAL: He is obese. He has no gross pallor. HEENT: No obvious icterus. No oropharyngeal lesions. NECK: Supple. CHEST: Symmetric. Lungs are clear. HEART: Sounds are regular without a new murmur. ABDOMEN: Soft. Bowel sounds are present. EXTREMITIES: No acute erythema of the extremities. : His nephrostomy drain is in place. His creatinine is down to 1.4. His white count is down to 14.4. Blood cultures collected yesterday are being processed. IMPRESSION: He has new fevers/sepsis. He is on treatment for complicated urinary tract infection with Escherichia coli. There is pyelitis and pyelonephritis. There is obstructive uropathy with nephrolithiasis. He has had a nephrostomy placed on the left. I suggest follow up on the blood cultures. Recheck urine culture. Add vancomycin to ceftriaxone. Monitor temperature, CBC and renal function. Continue to monitor clinical response to treatment. Job#: [id number] LYNSEY
[2017-12-30] MEDS: ENOXAPARIN SOD INJ 40 MG/0.4 ML SYR SC SCH (16:53)
[2017-12-31] VITALS (9 sets, daily range): BP systolic 108–140; BP diastolic 5–77
[2017-12-31] MEDS: VANCOMYCIN 1GM/NS 250 ML 250 ML IV SCH ×2 (01:00→12:38)
--- NOTE | 2017-12-31 06:20 | Progress Note ---
DATE: December 31, 2017 TIME: 6 a.m. OVERNIGHT: Feeling a little better. Less short of breath. REVIEW OF SYSTEMS: Denies any dizziness. PHYSICAL EXAMINATION VITAL SIGNS: Reviewed. GENERAL: A tired-appearing man resting in bed. HEENT: Anicteric. CARDIOVASCULAR: Normal S1 and S2. LUNGS: He has reduced breath sounds. Moderate air movement. ABDOMEN: Soft, nontender and nondistended. BACK: He has a left-sided nephrostomy tube in place. SKIN: Dry. PSYCHIATRIC: Normal affect. LABS: Reviewed. MEDICATIONS: Reviewed. ASSESSMENT: A 57-year-old man with: 1. Severe sepsis with acute kidney injury. 2. Left ureterolithiasis, status post left-sided nephrostomy tube. 3. Nonobstructive renal calculi. 4. Obstructive sleep apnea. 5. Acute respiratory distress. 6. Hyponatremia. 7. Diabetes mellitus, type 2. 8. Hyperlipidemia. 9. Transaminitis. 10. History of pulmonary embolism in 2012. 11. Hypertriglyceridemia. 12. Escherichia coli urinary tract infection. PLAN 1. CPAP at nighttime. 2. Oxygen status is improving. 3. Hemoglobin A1c is 7.8, LDL 69 and triglycerides 322. 4. Continue cholesterol regimen. 5. Continue treatment for E. coli urinary tract infection. 6. Leukocytosis is resolving. 7. Acute kidney injury, resolving. 8. Obtain labs this morning. 9. Physical therapy and discharge planning. Job#: [id number] [place]
[2017-12-31 07:16] LABS: HEMATOCRIT 35.9 % (38.2-49.6); HEMOGLOBIN 11.7 g/dL (14.0-18.0); MEAN CORPUSCULAR HEMOGLOBIN 29.9 pg (28-32); MEAN CORPUSCULAR HGB CONC 32.6 g/dL (31-35); MEAN CORPUSCULAR VOLUME 91.8 fL (81-99); PLATELET COUNT 308 x10e3/uL (140-360); RED BLOOD COUNT 3.91 x10e6/uL (4.3-5.7); RED CELL DISTRIBUTION WIDTH 13.8 % (11.7-14.4)
[2017-12-31 08:13] LABS: ANION GAP 11.3 mmol/L (8-16); BILIRUBIN,DIRECT 0.3 mg/dL (0.0-5.0); CALCIUM 8.3 mg/dL (8.4-10.2); CREATININE, SERUM 1.36 mg/dL (0.72-1.25); POTASSIUM 3.3 mmol/L (3.5-5.1)
[2017-12-31] MEDS: INSULIN LISPRO 100 UNIT/1 ML 3ML VIAL SQ SCH ×7 (08:43→21:00)
[2017-12-31] MEDS: INSULIN DETEMIR 100 UNIT/ML PEN SQ SCH (08:43)
[2017-12-31] MEDS: FAMOTIDINE 20 MG TAB PO SCH ×2 (08:43→17:03)
[2017-12-31] MEDS: LABETALOL HCL 100 MG TAB PO SCH ×2 (08:43→21:17)
[2017-12-31] MEDS: NIFEDIPINE CR 30 MG TAB PO SCH ×2 (08:43→21:17)
[2017-12-31] MEDS: CEFTRIAXONE SOD 1 GM VIAL IV SCH (12:35)
--- NOTE | 2017-12-31 12:47 | Progress Note ---
DATE: December 31, 2017 The patient is alert and responsive. He tells me that he has "aspiration" problem from an illness he had sometime before. It is not clear whether he was intubated and he had some adverse consequences from that intervention, but in any event, he tells me that he has problems with aspiration. I had asked him whether he had vomited within the past 48 to 72 hours that is when he mentioned that he could be aspirating. There is no diarrhea. No vomiting, no other systemic complaints reported. In the past 24 hours, he had temperatures up to 100.5 degrees Fahrenheit. PHYSICAL EXAMINATION VITAL SIGNS: On December 29, he had temperatures to 101.4 degrees Fahrenheit. His current temperature is 99.3. GENERAL: He is hemodynamically stable. He has no gross pallor. HEENT: No obvious icterus. No oropharyngeal lesions. NECK: Supple. CHEST: Symmetric. Breath sounds are coarse in the lung garcia. HEART: Sounds are regular without any significant murmur. ABDOMEN: Soft. Bowel sounds are present. EXTREMITIES: There is no acute erythema of his extremities. LABS: His white count is down to 13.6. His creatinine is 1.3. His blood cultures from December 29 are negative at 24 hours. Urine culture from December 30 is being processed. Blood cultures from December 27 were negative. Urine cultures from December 26 and grew E. coli. Sensitivities are being documented. IMPRESSION: He has a complicated genitourinary tract infection with sepsis due to E. coli associated that with pyelonephritis. He has pyelitis. He has nephrolithiasis. He has had placement of a percutaneous left nephrostomy tube. He had new fevers. The etiology is unclear. Cultures are so far negative. A chest x-ray; however, is being reported with increasing right mid lung opacity, which could reflect developing infection. I suggest continued treatment with vancomycin and ceftriaxone. Monitor his temperature, CBC, and renal function. Plan is to treat him for 14 days for his genitourinary tract infection. He could be converted to oral levofloxacin to complete the course of therapy. His evolving chest x-ray abnormality with probable aspiration should be monitored closely. Perhaps he could be considered for oral doxycycline in addition to levofloxacin for possible pulmonary infection at the time of discharge. I discussed the findings and tentative plans with the patient at the bedside. Job#: [id number] PAT
[2017-12-31] MEDS: ENOXAPARIN SOD INJ 40 MG/0.4 ML SYR SC SCH (17:03)
[2018-01-01] VITALS (8 sets, daily range): BP systolic 113–144; BP diastolic 57–140
[2018-01-01] MEDS: VANCOMYCIN 1GM/NS 250 ML 250 ML IV SCH ×2 (01:45→15:00)
[2018-01-01] MEDS: MORPHINE SULFATE 2 MG/ML SYR IV PRN ×2 (03:07→22:02)
[2018-01-01] MEDS: FAMOTIDINE 20 MG TAB PO SCH ×2 (07:26→17:42)
[2018-01-01] MEDS: INSULIN LISPRO 100 UNIT/1 ML 3ML VIAL SQ SCH ×7 (07:30→20:23)
[2018-01-01] MEDS: NIFEDIPINE CR 30 MG TAB PO SCH ×2 (08:18→20:25)
[2018-01-01] MEDS: INSULIN DETEMIR 100 UNIT/ML PEN SQ SCH (08:18)
[2018-01-01] MEDS: LABETALOL HCL 100 MG TAB PO SCH ×2 (08:18→20:25)
[2018-01-01] MEDS ORDERED: IOPAMIDOL 610MG/1ML 300 MG/ML VIAL IV ONE ×2 (10:06→12:16)
[2018-01-01] MEDS ORDERED: LEVOFLOXACIN 500MG/D5W 100ML 100 ML IV SCH (11:00)
[2018-01-01] MEDS: ENOXAPARIN SOD INJ 40 MG/0.4 ML SYR SC SCH (17:42)
[2018-01-01] MEDS ORDERED: MIDAZOLAM HCL 2 MG/2 ML VIAL ONE (19:14)
[2018-01-01] MEDS ORDERED: FENTANYL CITRATE/PF 100MCG/2 ML INJ ONE (19:14)
[2018-01-01] MEDS ORDERED: DEXAMETHASONE SOD PHOS INJ 4 MG/ML VIAL ONE (19:37)
[2018-01-01] MEDS ORDERED: LIDOCAINE HCL 2% LOCAL INJ 5 ML SDV VIAL INJ ONE (19:37)
[2018-01-01] MEDS ORDERED: ONDANSETRON HCL INJ 2 MG/ML VIAL ONE (19:37)
[2018-01-01] MEDS ORDERED: SEVOFLURANE INHAL SOLN 250 ML PEN BTL ONE (19:37)
[2018-01-01] MEDS ORDERED: PROPOFOL IV EMULSION 10 MG/ML 20 ML VIAL ONE (19:37)
[2018-01-02 00:54] VITALS: BP 138/77
[2018-01-02] MEDS: VANCOMYCIN 1GM/NS 250 ML 250 ML IV SCH (01:22)
[2018-01-02 04:35] VITALS: BP 107/59
[2018-01-02 05:18] VITALS: BP 107/59
[2018-01-02] MEDS ORDERED: DOXYCYCLINE MO100 M1 PO (06:36)
[2018-01-02] MEDS ORDERED: FAMOTIDINE20 MG PO (06:36)
[2018-01-02] MEDS ORDERED: LEVAQUIN500 MG PO (06:36)
[2018-01-02 06:56] LABS: BASOPHILS % 0.4 % (0.0-1.0); EOSINOPHILS # (AUTO) 0.3 (0.0-0.4); EOSINOPHILS % 2.8 % (0.0-6.0); HEMATOCRIT 33.3 % (38.2-49.6); HEMOGLOBIN 10.8 g/dL (14.0-18.0); LYMPHOCYTES # (AUTO) 2.1 (1.0-3.2); LYMPHOCYTES % 23.1 % (18.0-39.1); MEAN CORPUSCULAR HGB CONC 32.4 g/dL (31-35); MEAN CORPUSCULAR VOLUME 92.5 fL (81-99); MONOCYTES # (AUTO) 0.8 (0.2-0.8); MONOCYTES % 8.7 % (4.4-11.3); NEUTROPHILS # (AUTO) 5.8 (2.1-6.9); NEUTROPHILS % 63.2 % (38.7-80.0); PLATELET COUNT 330 x10e3/uL (140-360); RED CELL DISTRIBUTION WIDTH 13.6 % (11.7-14.4)
[2018-01-02 07:10] LABS: ANION GAP 13.7 mmol/L (8-16); CREATININE, SERUM 1.45 mg/dL (0.72-1.25); POTASSIUM 3.7 mmol/L (3.5-5.1)
[2018-01-02 08:00] VITALS: BP 120/58
--- NOTE | 2018-01-02 08:31 | Progress Note ---
DATE: January 01, 2018 TIME: 7:30 a.m. OVERNIGHT: No events. REVIEW OF SYSTEMS: Denies any dizziness. VITAL SIGNS: Reviewed. PHYSICAL EXAMINATION GENERAL: A tired-appearing man resting in bed. HEENT: Anicteric. CARDIOVASCULAR: Normal S1 and S2. LUNGS: Moderate breath sounds. ABDOMEN: Soft, nontender. BACK: Left-sided flank slightly tender. SKIN: Dry. PSYCHIATRIC: Normal affect. LABS: Reviewed. MEDICATIONS: Reviewed. ASSESSMENT: A 57-year-old man. 1. Severe sepsis with acute kidney injury. 2. Left ureterolithiasis, status post left nephrostomy tube, status post displacement. 3. Nonobstructive renal calculi. 4. Obstructive sleep apnea. 5. Acute respiratory distress. 6. Hyponatremia. 7. Diabetes mellitus, type 2. 8. Hyperlipidemia and hypertriglyceridemia. 9. History of pulmonary embolism. 10. Escherichia coli urinary tract infection. PLAN 1. Continue antibiotics. 2. Continue CPAP. 3. Continue supportive care. 4. Placement is pending. Job#: [id number]
[2018-01-02] MEDS: FAMOTIDINE 20 MG TAB PO SCH (08:34)
[2018-01-02] MEDS: INSULIN LISPRO 100 UNIT/1 ML 3ML VIAL SQ SCH ×2 (08:34)
[2018-01-02] MEDS: LABETALOL HCL 100 MG TAB PO SCH (08:35)
[2018-01-02] MEDS: INSULIN DETEMIR 100 UNIT/ML PEN SQ SCH (08:35)
[2018-01-02] MEDS: NIFEDIPINE CR 30 MG TAB PO SCH (08:35)
--- NOTE | 2018-01-02 09:07 | Discharge Summary ---
PRINCIPAL DIAGNOSES 1. Severe sepsis with acute kidney injury. 2. Left ureterolithiasis, status post left-sided nephrostomy tube, status post stent removal and then stent placement with 3 stones extracted. 3. Nonobstructive renal calculi. 4. Obstructive sleep apnea. 5. Acute respiratory distress. 6. Hyponatremia. 7. Diabetes mellitus, type 2. 8. Hyperlipidemia. 9. Transaminitis. 10. History of pulmonary embolism in 2013. 11. Hypertriglyceridemia. 12. Escherichia coli urinary tract infection. SECONDARY DIAGNOSES 1. Pulmonary embolism in 2013. 2. Sleep apnea. CHIEF COMPLAINT: Bloody urine. HISTORY OF PRESENT ILLNESS: This is a 57-year-old man who developed bloody urine. Refer to the H and P for further details. HOSPITAL COURSE: Patient had severe sepsis with acute kidney injury and left ureterolithiasis. Had a left-sided nephrostomy tube placed. He pulled it out accidentally. Stones were extracted and urinary stent was placed. He had nonobstructive renal calculi. He had obstructive sleep apnea and acute respiratory distress. He required BiPAP support. This improved. He received antibiotics. He had hyponatremia, which has improved. He has diabetes mellitus, type 2. His hemoglobin A1c was 7.8, LDL 69 and triglycerides 322. The patient had hyperlipidemia and hypertriglyceridemia treated with medication regimen. He had a history of PE in 2012. E. coli urinary tract infection was present and was treated with antibiotics. He will go home on Levaquin for a total of 14 days and doxycycline for treatment of his lung disease. The patient is improving and currently appropriate for discharge. Will follow up. DISCHARGE MEDICATIONS: Per electronic medical record. FOLLOWUP 1. Primary care doctor in 1 week. 2. Urology in 2 weeks. NO VILLEGAS MD Job#: [id number] [place]
--- NOTE | 2018-01-03 10:39 | Operative Report ---
DATE OF PROCEDURE: January 01, 2018 PREOPERATIVE DIAGNOSIS: Left ureteral stone. POSTOPERATIVE DIAGNOSIS: Left renal and ureteral stones. OPERATIVE PROCEDURES PERFORMED 1. Cystoscopy. 2. Left retrograde pyelogram. 3. Left ureteroscopy with stone extraction. 4. Placement of left ureteral stent. ANESTHESIA: General anesthesia. ESTIMATED BLOOD LOSS: Minimal. INDICATIONS: Mr. Bean Gutierrez is a 57-year-old gentleman with a prior history of nephrolithiasis, who was admitted to the hospital last week with sepsis due to an obstructing left mid-ureteral stone. He had an urgent nephrostomy tube placement and has defervesced and clinically improved. He now presents for definitive surgical management of this stone. PROCEDURE IN DETAIL: The patient was brought into the operating room and placed in the supine position. After administration of general anesthesia, he was placed in the dorsal lithotomy position and prepped and draped in the usual sterile fashion. Cystourethroscopy was performed using a 21-Tajik cystoscope. Anterior and posterior urethra were noted to be normal. The prostate had a short fossa with a significant elevation of the median bar. The bladder was entered with mild difficulty. Upon entrance into the bladder, the ureteral orifices were in normal anatomical position and produced clear efflux bilaterally. There were grade 1 to 2 trabeculations noted throughout the bladder. Using an 8-Tajik cone-tipped catheter, a left retrograde pyelogram was performed. This revealed a filling defect at the union of the middle and distal thirds of the ureter. There was moderate hydronephrosis noted behind this. A 0.035 Bentson wire was placed up into the left renal pelvis under fluoroscopic guidance, and the ureteral orifice was dilated with a UroMax balloon. Flexible ureteroscopy was then performed. A stone at the previously described location was approximately 7 to 8 mm in diameter. This was grasped with a basket and removed in its entirety. Repeat ureteroscopy revealed no other stones in the proximal or mid ureter. In the renal pelvis, there were several small stones and Mohit plaques seen in the middle and lower pole calices. These were removed without difficulty. There was 1 stone seen in the mid-pole frederick, which could not be entered due to technical difficulty. There was no free fluid or residual stones seen at the conclusion of the procedure. The ureteroscope was removed without difficulty. A 6-Tajik, 26-cm stent was placed. One coil was in the renal pelvis and the 2nd coil was in the bladder. The string was allowed to exit the urethral meatus. The patient was returned to a supine position and anesthesia was reversed. He was transferred to a bed and taken to the postanesthesia care unit in good condition. Of note, the needle and instrument counts were correct at the conclusion of the case. Job#: [id number]
== END 2018-01-02 11:03 | disposition home or self-care (01) | DRG 853 ==
LOC: ER 21:34 → UNDOADMIN 12-27 01:32 → ERHOLD 12-27 01:32 → CATH LAB 12-27 01:43 → ICU 12-27 03:27 → MED/SURG2 12-30 11:14
PROVIDERS: ADMIT Internal Medicine; ATTEND Internal Medicine
PROC: 5A09357 Assistance with Respiratory Ventilation, Less than 24 Consecutive Hours, Continuous Positive Airway Pressure (ICD-10-PCS; principal; 2017-12-27)
PROC: 0T9130Z Drainage of Left Kidney with Drainage Device, Percutaneous Approach (ICD-10-PCS; 2017-12-27)
PROC: 02HV33Z Insertion of Infusion Device into Superior Vena Cava, Percutaneous Approach (ICD-10-PCS; 2017-12-27)
PROC: 0TC78ZZ Extirpation of Matter from Left Ureter, Via Natural or Artificial Opening Endoscopic (ICD-10-PCS; 2018-01-01)
PROC: 0T778DZ Dilation of Left Ureter with Intraluminal Device, Via Natural or Artificial Opening Endoscopic (ICD-10-PCS; 2018-01-01)
DX: A41.51 Sepsis due to Escherichia coli [E. coli] (principal); R65.21 Severe sepsis with septic shock; J96.00 Acute respiratory failure, unspecified whether with hypoxia or hypercapnia; E87.1 Hypo-osmolality and hyponatremia; N13.2 Hydronephrosis with renal and ureteral calculous obstruction; N13.6 Pyonephrosis; N17.9 Acute kidney failure, unspecified; I69.351 Hemiplegia and hemiparesis following cerebral infarction affecting right dominant side; E86.0 Dehydration; R06.03 Acute respiratory distress; K72.90 Hepatic failure, unspecified without coma; E11.9 Type 2 diabetes mellitus without complications; Z86.711 Personal history of pulmonary embolism; G47.33 Obstructive sleep apnea (adult) (pediatric); E80.6 Other disorders of bilirubin metabolism; E78.5 Hyperlipidemia, unspecified; E78.1 Pure hyperglyceridemia
CPT/HCPCS: 36415; 36556; 36600; 50432; 70450; 71045; 74176; 74420; 74425; 74470; 76937; 76942; 77001; 80048; 80053; 80061; 80076; 80202; 81001; 82150; 82550; 82553; 82805; 82948; 83036; 83605; 83690; 83735; 84484; 85007; 85025; 85027; 85610; 85730; 87040; 87070; 87086; 87186; 87205; 88300; 93005; 94660; 96372; 96376; 99285; C1751; C1766; C1769; C2617; J0692; J0696; J1100; J1650; J1940; J1956; J2001; J2250; J2270; J2405; J3370; J7030; J7050; Q9967